=== PATIENT | male | born 1930 | race African-American/Black ===

== ENCOUNTER 2016-07-23 01:07 | Emergency (ER) | payer MEDICARE ==
[~2016-07-23] VITALS: Ht 165.1 cm; Wt 50.0 kg
[~2016-07-23 01:07] MED LIST: CALC-586 PO; FAMO20TA8 PO; FOLI-43 PO; GABA-529 PO; METH2.5T PO; METH4TAB17 PO; SUCR1TAB PO
[2016-07-23] MEDS ORDERED: ONDANSETRON HCL 4MG/2ML VIAL IV STA (01:25)
[2016-07-23] MEDS ORDERED: MORPHINE SULFATE 4 MG/ML CPJ (NOT FOR IM USE) IV STA (01:25)
[2016-07-23] MEDS ORDERED: NITROGLYCERIN OINT 1GM/INCH UDPKT TD ONE (01:30)
[2016-07-23 01:40] LABS: BASOPHILS % 1.3 % (0.0-2.0); EOSINOPHILS % 4.4 % (0.0-5.0); HEMATOCRIT. 35.7 % (42.0-52.0); LYMPHOCYTES % 23.6 % (20.0-50.0); MEAN CORPUSCULAR HGB CONC 33.7 g/dL (31.0-37.0); MEAN PLATELET VOLUME 8.4 fl (7.4-10.4); MONOCYTES % 10.9 % (2.0-8.0); NEUTROPHILS % 59.8 % (40.0-76.0); PLATELET 203 x1000/uL (130-400); RED CELL DISTRIBUTION WIDTH 13.9 % (11.6-14.6); WHITE BLOOD COUNT 6.2 x1000/uL (4.5-11.0)
[2016-07-23 01:47] LABS: PARTIAL THROMBOPLASTIN TIME 26.2 sec (24.0-34.0); PROTHROMBIN TIME 10.5 sec
[2016-07-23 01:48] VITALS: BP 163/75
[2016-07-23 01:53] LABS: ALANINE AMINOTRANSFERASE 18 IU/L (13-61); ANION GAP 12; CALCIUM 9.3 mg/dL (8.5-10.1); CARBON DIOXIDE 30 mEq/L (21-32); CHLORIDE 103 mEq/L (98-107); INDEX HEMOLYSI 1 (1-3); INDEX ICTERIC 1 (1-4); INDEX LIPEMIC 1 (1-3); TROPONIN I 0.11 ng/mL (0.00-0.04); UREA NITROGEN BLOOD 15 mg/dL (7-21); eGFR > 60 mL/min (>60)
[2016-07-29] MEDS ORDERED: DOCU-150 PO (01:42)
[2016-07-29] MEDS ORDERED: CLOP75TA33 PO (01:42)
[2016-07-29] MEDS ORDERED: PANT40TA4 PO (01:42)
[2016-07-29] MEDS ORDERED: ASPIRIN EC 81 MG PO (01:42)
[2016-07-29] MEDS ORDERED: ISOSORBIDE DINITRATE PO (01:42)
[2016-07-29] MEDS ORDERED: ATOR80TA76 PO (01:42)
== END 2016-07-23 02:01 | disposition short-term general hospital (02) ==
LOC: ER 01:08
DX: I21.3 ST elevation (STEMI) myocardial infarction of unspecified site (principal); E78.00 Pure hypercholesterolemia, unspecified; I51.7 Cardiomegaly; F12.90 Cannabis use, unspecified, uncomplicated; M19.90 Unspecified osteoarthritis, unspecified site; Z88.6 Allergy status to analgesic agent; Z85.038 Personal history of other malignant neoplasm of large intestine; Z90.49 Acquired absence of other specified parts of digestive tract
CPT/HCPCS: 36415; 80053; 84484; 85025; 85610; 85730; 93005; 96374; 96375; 99285; J2270; J2405